=== PATIENT | male | born 1985 | race Caucasian/White ===

== ENCOUNTER 2024-04-07 02:20 | Inpatient (IN) | payer MEDICAID ==
[~2024-04-07] VITALS: Ht 177.8 cm; Wt 68.0 kg
[2024-04-07 02:52] LABS: BASOPHILS # (AUTO) 0.1 X10'3 (0-0.2); BASOPHILS % (AUTO) 0.4 % (0-1); EOSINOPHILS # (AUTO) 0.3 X10'3 (0-0.9); HEMATOCRIT 39.5 % (42.0-52.0); LYMPHOCYTES # (AUTO) 2.3 X10'3 (1.1-4.8); LYMPHOCYTES % (AUTO) 15.6 % (21-51); MEAN CORPUSCULAR HEMOGLOBIN 28.7 PG (27.0-31.0); MEAN CORPUSCULAR VOLUME 87.2 FL (78-98); MEAN PLATELET VOLUME 7.6 FL (7.4-10.4); MONOCYTES # (AUTO) 1.5 X10'3 (0-0.9); MONOCYTES % (AUTO) 10.1 % (2-12); NEUTROPHILS # (AUTO) 10.6 X10'3 (1.8-7.7); NEUTROPHILS % (AUTO) 71.9 % (42-75); PLATELET COUNT 251 X10'3 (140-440); RED BLOOD COUNT 4.53 X10'6 (4.70-6.10); RED CELL DISTRIBUTION WIDTH 14.5 % (11.5-14.5); WHITE BLOOD COUNT 14.8 X10'3 (4.5-11.0)
[2024-04-07 03:02] LABS: ALBUMIN 3.4 G/DL (3.4-5.0); ANION GAP 7 (8-16); BLOOD UREA NITROGEN 12 MG/DL (7-18); BUN/CREATININE RATIO 14.1 (10.0-20.0); CALCIUM 8.5 MG/DL (8.5-10.1); CHLORIDE 101 MMOL/L (99-107); CREATININE 0.85 MG/DL (0.60-1.10); GLUCOSE 95 MG/DL (70-104); POTASSIUM 3.7 MMOL/L (3.5-5.1); SODIUM 134 MMOL/L (135-145); TOTAL CARBON DIOXIDE 25.7 MMOL/L (24-32); eCRCL 116 ML/MIN; eGFR > 90 ML/MIN
[2024-04-07] MEDS: VANCOMYCIN 1,500MG inj. 1,500 MG in normal saline 500ml IV soln 300 ML IV SCH (03:47)
[2024-04-07] MEDS: piperacillin/tazo 4.5gm/100ml 100 ML IV SCH (03:47)
[2024-04-07] MEDS: HYDROmorphone 1 mg/ml syringe IV ONE (03:48)
[2024-04-07] MEDS ORDERED: mag hydrox/Alum hydrox/simeth 30ml oral suspension PO PRN (04:20)
[2024-04-07] MEDS ORDERED: magnesium Cl slow-release 64mg tablet PO PRN (04:20)
[2024-04-07] MEDS ORDERED: potassium Cl 40MEQ/1/2NS 520ml 520 ML IV PRN (04:20)
[2024-04-07] MEDS ORDERED: magnesium sulf-water 4G/100mL 100 ML IV PRN (04:20)
[2024-04-07] MEDS ORDERED: magnesium sulf-water 2g/50mL 50 ML IV PRN (04:20)
[2024-04-07] MEDS ORDERED: potassium Cl 20 mEq SR tablet PO PRN ×2 (04:20)
[2024-04-07] MEDS ORDERED: magnesium hydroxide 30ml (MOM) UD suspension PO PRN (04:20)
[2024-04-07] MEDS ORDERED: acetaminophen 325mg tablet PO PRN (04:20)
[2024-04-07] MEDS: normal saline 1000ml 1,000 ML IV SCH (04:49)
[2024-04-07] MEDS ORDERED: dextrose 50%-water 50ml dispensing syringe IV PRN (05:00)
[2024-04-07] MEDS ORDERED: haloperidol 5mg tablet PO PRN (05:00)
[2024-04-07] MEDS: thiamine 100mg tablet PO SCH (05:22)
[2024-04-07] MEDS: folic acid 1mg tablet PO SCH (05:22)
[2024-04-07 06:52] LABS: MAGNESIUM 2.2 MG/DL (1.5-2.4)
[2024-04-07] MEDS: ondansetron/PF 4mg/2ml inj IV PRN (07:22)
[2024-04-07] MEDS: morphine 2 MG/ML inj. syringe IV PRN (07:23)
[2024-04-07] MEDS: K and/or MAG REPLACEMENT MC SCH (08:00)
[2024-04-07 08:18] LABS: BILIRUBIN,URINE NEGATIVE (Neg); CLARITY,URINE CLEAR (Clear); COLOR,URINE YELLOW (Yellow); GLUCOSE, URINE NEGATIVE (Neg); KETONES,URINE NEGATIVE (Neg); LEUKOCYTE ESTERASE ,URINE NEGATIVE (Neg); NITRITES, URINE NEGATIVE (Neg); OCCULT BLOOD,URINE NEGATIVE (Neg); PROTEIN,URINE NEGATIVE (Neg); UROBILINOGEN,URINE 0.2 E.U/dL (0.2-1.0)
[2024-04-07 08:33] LABS: % IRON SATURATION 7 % (11-46); IRON 16 UG/DL (53-167); TOTAL IRON BINDING CAPACITY 226 UG/DL (259-388)
[2024-04-07 08:36] LABS: UA COLLECTION TYPE URINAL
[2024-04-07] MEDS ORDERED: iohexol 300mg/ml 100ml inj. ONE (08:41)
[2024-04-07] MEDS: LORazepam 2 mg/ml vial IV PRN (09:14)
[2024-04-07] MEDS: heparin, porcine 5000 units/ml vial SQ SCH (09:20)
[2024-04-07 12:06] VITALS: BP 122/55; PULSE 98; RESP 23; TEMP 98.3; O2SAT 98
[2024-04-07] MEDS: piperacillin/tazo 3.375gm/50ml 50 ML IV SCH (12:42)
[2024-04-07 13:19] VITALS: BP 111/76; PULSE 69; RESP 14; TEMP 98.2; O2SAT 94
[2024-04-07 16:05] VITALS: RESP 22; O2SAT 98
[2024-04-07] MEDS: VANCOMYCIN/WATER FOR INJ (PEG) 1.25GM/250 ML IVPB IV SCH (16:26)
[2024-04-07 18:00] VITALS: BP 114/66; PULSE 66; RESP 18; TEMP 98.5; O2SAT 100
[2024-04-07 22:00] VITALS: BP 123/61; PULSE 74; RESP 16; TEMP 97.6; O2SAT 98
[2024-04-08 06:00] VITALS: BP 118/69; PULSE 77; RESP 18; TEMP 97.5; O2SAT 99
[2024-04-08 07:02] LABS: BASOPHILS % (AUTO) 0.4 % (0-1); EOSINOPHILS # (AUTO) 0.3 X10'3 (0-0.9); EOSINOPHILS % (AUTO) 3.5 % (0-6); HEMATOCRIT 38.3 % (42.0-52.0); HEMOGLOBIN 12.8 g/dl (14.0-17.9); LYMPHOCYTES # (AUTO) 2.4 X10'3 (1.1-4.8); LYMPHOCYTES % (AUTO) 26.8 % (21-51); MEAN CORPUSCULAR HEMOGLOBIN 29.7 PG (27.0-31.0); MEAN CORPUSCULAR HGB CONC 33.4 g/dL (33.0-36.5); MEAN CORPUSCULAR VOLUME 88.9 FL (78-98); MEAN PLATELET VOLUME 7.9 FL (7.4-10.4); MONOCYTES # (AUTO) 0.9 X10'3 (0-0.9); NEUTROPHILS # (AUTO) 5.4 X10'3 (1.8-7.7); NEUTROPHILS % (AUTO) 59.3 % (42-75); PLATELET COUNT 211 X10'3 (140-440); RED CELL DISTRIBUTION WIDTH 14.2 % (11.5-14.5)
[2024-04-08 07:28] LABS: ALANINE AMINOTRANSFERASE 22 U/L (12-78); ALBUMIN 2.5 G/DL (3.4-5.0); ALBUMIN/GLOBULIN RATIO 0.6 (1.1-1.5); ALKALINE PHOSPHATASE 79 IU/L (46-116); ANION GAP 9 (8-16); ASPARTATE AMINO TRANSFERASE 15 U/L (10-37); BILIRUBIN,TOTAL 0.6 MG/DL (0.1-1.0); BLOOD UREA NITROGEN 8 MG/DL (7-18); BUN/CREATININE RATIO 9.1 (10.0-20.0); CALCIUM 8.3 MG/DL (8.5-10.1); CHLORIDE 104 MMOL/L (99-107); CREATININE 0.88 MG/DL (0.60-1.10); GLUCOSE 92 MG/DL (70-104); MAGNESIUM 2.2 MG/DL (1.5-2.4); SODIUM 138 MMOL/L (135-145); eCRCL 112 ML/MIN; eGFR > 90 ML/MIN
[2024-04-08 09:15] VITALS: RESP 18; O2SAT 98
[2024-04-08 10:00] VITALS: BP 108/60; PULSE 65; RESP 19; TEMP 97.9; O2SAT 98
[2024-04-08] MEDS: HYDROmorphone 1 mg/ml syringe IV PRN (15:44)
[2024-04-08] MEDS: vancomycin inj 1,250 MG in normal saline 250ml IV soln 250 ML IV SCH (15:54)
[2024-04-08 18:00] VITALS: BP 110/63; PULSE 68; RESP 16; TEMP 97.7; O2SAT 98
[2024-04-08 22:36] VITALS: BP 102/54; PULSE 66; RESP 16; TEMP 98.6; O2SAT 99
[2024-04-09 06:00] VITALS: BP 91/53; PULSE 60; RESP 16; TEMP 97.9; O2SAT 97
[2024-04-09 06:29] LABS: BASOPHILS % (AUTO) 0.6 % (0-1); EOSINOPHILS # (AUTO) 0.3 X10'3 (0-0.9); EOSINOPHILS % (AUTO) 4.3 % (0-6); HEMATOCRIT 38.4 % (42.0-52.0); HEMOGLOBIN 12.6 g/dl (14.0-17.9); LYMPHOCYTES # (AUTO) 1.9 X10'3 (1.1-4.8); MEAN CORPUSCULAR HEMOGLOBIN 29.3 PG (27.0-31.0); MEAN CORPUSCULAR HGB CONC 32.8 g/dL (33.0-36.5); MEAN CORPUSCULAR VOLUME 89.5 FL (78-98); MEAN PLATELET VOLUME 7.8 FL (7.4-10.4); MONOCYTES # (AUTO) 0.6 X10'3 (0-0.9); MONOCYTES % (AUTO) 8.9 % (2-12); NEUTROPHILS % (AUTO) 58.2 % (42-75); PLATELET COUNT 241 X10'3 (140-440); RED BLOOD COUNT 4.29 X10'6 (4.70-6.10); WHITE BLOOD COUNT 6.9 X10'3 (4.5-11.0)
[2024-04-09 06:46] LABS: ALANINE AMINOTRANSFERASE 24 U/L (12-78); ALBUMIN 2.5 G/DL (3.4-5.0); ALBUMIN/GLOBULIN RATIO 0.6 (1.1-1.5); ALKALINE PHOSPHATASE 71 IU/L (46-116); ANION GAP 7 (8-16); ASPARTATE AMINO TRANSFERASE 13 U/L (10-37); BILIRUBIN,TOTAL 0.3 MG/DL (0.1-1.0); BLOOD UREA NITROGEN 12 MG/DL (7-18); BUN/CREATININE RATIO 14.6 (10.0-20.0); CALCIUM 8.2 MG/DL (8.5-10.1); CHLORIDE 105 MMOL/L (99-107); CREATININE 0.82 MG/DL (0.60-1.10); GLUCOSE 89 MG/DL (70-104); MAGNESIUM 2.2 MG/DL (1.5-2.4); POTASSIUM 3.9 MMOL/L (3.5-5.1); SODIUM 138 MMOL/L (135-145); TOTAL CARBON DIOXIDE 25.9 MMOL/L (24-32); eCRCL 120 ML/MIN; eGFR > 90 ML/MIN
[2024-04-09] MEDS: acetaminophen 325mg tablet PO PRN (08:21)
[2024-04-09 10:00] VITALS: BP 114/56; PULSE 67; RESP 16; TEMP 98.5; O2SAT 98
[2024-04-10] MEDS ORDERED: VANCOMYCIN LEVEL IV ONE (14:30)
== END 2024-04-09 13:20 | disposition left against medical advice (07) | DRG 721 ==
LOC: ER 02:20 → ED HOLD 04:23 → ORTHO 4S 11:42
PROVIDERS: ADMIT Internal Medicine Sleep Medicine; ATTEND Internal Medicine
PROC: BQ2D1ZZ Computerized Tomography (CT Scan) of Right Lower Leg using Low Osmolar Contrast (ICD-10-PCS; principal; 2024-04-07)
DX: T85.79XA Infection and inflammatory reaction due to other internal prosthetic devices, implants and grafts, initial encounter (principal); A41.9 Sepsis, unspecified organism; E87.1 Hypo-osmolality and hyponatremia; L97.818 Non-pressure chronic ulcer of other part of right lower leg with other specified severity; L03.113 Cellulitis of right upper limb; X58.XXXA Exposure to other specified factors, initial encounter; Z66 Do not resuscitate; D64.9 Anemia, unspecified; Z53.21 Procedure and treatment not carried out due to patient leaving prior to being seen by health care provider; T81.41XA Infection following a procedure, superficial incisional surgical site, initial encounter; Y83.8 Other surgical procedures as the cause of abnormal reaction of the patient, or of later complication, without mention of misadventure at the time of the procedure; Y92.89 Other specified places as the place of occurrence of the external cause
CPT/HCPCS: 36415; 71045; 73590; 73701; 80048; 80053; 81003; 82948; 83540; 83550; 83605; 83735; 84145; 85025; 87040; 87070; 87075; 87081; 93970; 97161; 97530; 99285; A6196; A6212; A6222; A6253; A6446; A6449; G0378; J1171; J1644; J2060; J2270; J2405; J2543; J3370; J3372; J7030; J7040; J7050; Q9967